=== PATIENT | female | born 1960 | race Caucasian/White ===

== ENCOUNTER 2021-07-21 04:01 | Emergency (ER) | payer BC, OTHER ==
[~2021-07-21] VITALS: Ht 157.5 cm; Wt 63.5 kg
[2021-07-21 04:08] VITALS: BP_SYST 95
[2021-07-21] MEDS ORDERED: ASPIRIN 81 MG TAB.CHEW PO ONE (04:15)
[2021-07-21] MEDS ORDERED: MAG HYDROX/AL HYDROX/SIMETH 30 ML, DICYCLOMINE HCL 20 MG, LIDOCAINE VISCOUS 2% 15ML (PO... PO ONE ×3 (04:45)
[2021-07-21] MEDS ORDERED: NACL 0.9% 1,000 ML IV ONE (04:45)
[2021-07-21] MEDS ORDERED: NITROGLYCERIN 0.4 MG TAB.SUBL SL ONE (04:45)
[2021-07-21 06:38] LABS: CREATININE 0.78 mg/dL (0.55-1.30); POTASSIUM 3.7 mmol/L (3.5-5.1)
[2021-07-21 06:44] LABS: ALBUMIN 3.4 g/dL (3.4-4.8); TOTAL BILIRUBIN 0.7 mg/dL (0.0-1.0)
[2021-07-21 06:54] LABS: BASOPHILS # (AUTO) 0.1 K/uL (0.0-0.2); EOSINOPHILS # (AUTO) 0.1 K/uL (0.0-0.4); EOSINOPHILS % (AUTO) 1.8 % (0.0-4.0); HEMATOCRIT 37.3 % (36-48); LYMPHOCYTES # (AUTO) 1.4 K/uL (1.0-5.5); LYMPHOCYTES % (AUTO) 26.2 % (20.5-51.5); MEAN CORPUSCULAR HEMOGLOBIN 31 pg (27-31); MEAN CORPUSCULAR HGB CONC 35 % (32-36); MEAN CORPUSCULAR VOLUME 88 fL (79.0-98.0); MONOCYTES # (AUTO) 0.4 K/uL (0.0-1.0); NEUTROPHILS # (AUTO) 3.5 K/uL (1.8-7.7); PLATELET COUNT (AUTO) 263 K/uL (130-430); RED BLOOD CELL COUNT(AUTO) 4.26 MIL/uL (4.2-6.2); RED CELL DISTRIBUTION WIDTH 12.7 % (9.0-15.0); WHITE BLOOD COUNT (AUTO) 5.5 K/uL (4.8-10.8)
[2021-07-21 09:25] VITALS: BP_SYST 128
== END 2021-07-21 09:25 | disposition home or self-care (01) ==
LOC: SED 04:01
DX: R07.89 Other chest pain (principal); I10 Essential (primary) hypertension; E11.9 Type 2 diabetes mellitus without complications
CPT/HCPCS: 36415; 71045; 80053; 83880; 84484; 85025; 85379; 93005; 96360; 99285; J7030